=== PATIENT | female | born 1970 | race Caucasian/White ===

== ENCOUNTER 2019-12-28 18:43 | Emergency (ER) | payer OTHER, SELFPAY ==
[2017-10-02 15:40] VITALS: BMI 25.4
[2019-12-28 18:57] VITALS: BP 141/92; PULSE 88; RESP 18; TEMP 37.3; O2SAT 100
[2019-12-28 20:04] LABS: Bacteria Urine None Seen; RBC Urine None Seen (0-5/HPF); WBC Urine None Seen (0-5/HPF)
[2019-12-28 20:19] LABS: Culture Indicated Urine Cult Not Indicated; Urine Comments Microscopic Normal
[2019-12-28] MEDS: SODIUM CHLORIDE 0.9% 1,000 ML 1000 ML IV (20:48)
[2019-12-28] MEDS: ONDANSETRON 4 MG/2 ML INJ IV ×2 (20:48→23:03)
[2019-12-28 20:58] LABS: Add Manual Diff / Slide Review NO; Basophils Absolute Auto 0 /uL (0-100); Basophils Percent Auto 0.5 % (0-2); Eosinophils Absolute Auto 100 /uL (0-450); Eosinophils Percent Auto 1.8 % (2-4); Hemoglobin 12.7 g/dL (12.0-16.0); Lymphocytes Absolute Auto 2500 /uL (1100-4500); Lymphocytes Percent Auto 35.8 % (25-40); Mean Corpuscular HGB Conc 34.2 % (30-36); Mean Corpuscular Hemoglobin 33.1 PG (26-34); Mean Corpuscular Volume 96.6 fL (80-100); Monocytes Absolute Auto 600 /uL (0-900); Monocytes Percent Auto 8.7 % (3-14); Neutrophils Absolute Auto 3700 /uL (1500-7000); Neutrophils Percent Auto 53.2 % (50-75); Platelet Count 211 X10^3/uL (150-400); Red Blood Cell Count 3.83 X10^6/uL (4.0-5.2); Red Cell Distribution Width 13.4 % (11.6-14.8)
[2019-12-28 21:00] VITALS: BP 111/66; PULSE 75; RESP 16; O2SAT 99
[2019-12-28 21:03] VITALS: PULSE 77; RESP 15; O2SAT 100
[2019-12-28 21:08] LABS: PTT Partial Thromboplastin Tim 33 SECONDS (26.4-36.2)
[2019-12-28 21:09] LABS: Alanine Aminotransferase 18 IU/L (<35); Albumin 4.5 g/dL (3.5-5.0); Albumin Globulin Ratio 1.9 (1.0-2.8); Alkaline Phosphatase 62 U/L (38-126); Aspartate Aminotransferase 27 IU/L (14-36); BUN Creatinine Ratio 15.2 (6-22); Bilirubin Total 0.5 mg/dL (0.2-1.3); Blood Urea Nitrogen 10 mg/dL (7-17); Calcium 9.4 mg/dL (8.4-10.2); Carbon Dioxide 18 mmol/L (22-32); Chloride 99 mmol/L (98-107); Estimated Glomerular Filt Rate > 60.0 mL/min (>60); Globulin 2.4 g/dL (1.7-4.1); Glucose 61 mg/dL (70-100); HEMOLYSIS < 15 (0-50); Lipase 54 U/L (23-300); Potassium 3.1 mmol/L (3.4-5.1); Sodium 136 mmol/L (137-145); Total Protein 6.9 g/dL (6.3-8.2)
[2019-12-28 21:30] VITALS: BP 126/75; PULSE 83; RESP 16; O2SAT 99
[2019-12-28] MEDS: POTASSIUM CHLORIDE 20 MEQ/15 ML UDC 40 MEQ PO (21:33)
[2019-12-28 22:00] VITALS: BP 98/54; PULSE 73; PULSE 77; RESP 19; O2SAT 97
[2019-12-28 22:30] VITALS: BP 101/58; PULSE 74; RESP 16; O2SAT 96
--- NOTE | 2019-12-28 22:40 | ED_ITS ---
HPI - Nausea/Vomiting/Diarrhea General Chief complaint: Nausea/Vomiting/Diarrhea Stated complaint: thinks potassium levels is low, nausea Time Seen by Provider: 12/28/19 19:24 Source: patient Mode of arrival: Ambulatory Limitations: no limitations History of Present Illness HPI Narrative: 49-year-old female daily smoker with history of high blood pressure, GERD and a prior Joshua-en-Y gastric bypass in 2008 at [facility] presents with a chief complaint of ongoing nausea and vomiting. Her symptoms started a few days ago and are largely in the absence of pain. She denies any new medications or dietary change. She was seen and evaluated at an outside facility and had a thorough evaluation including a CT scan of her abdomen and pelvis with IV contrast which notes findings suggestive of a gastrogastric f istula. She was given contact information for follow-up with the bariatric service [facility] in [place] but has yet to hear back from them. Furthermore, she has had increasing nausea and episodes of vomiting and has had difficulty keeping medications down. She had a slightly decreased potassium a few days ago and has been able to at least keep the supplements down but largely unable to keep food and water down. She has had no runny nose, sore throat or cough. She denies any fever or chills. She denies chest pain or shortness of breath. She has some vague abdominal discomfort but nothing significant. She denies any change in bowel or bladder habits. MD complaint: nausea, vomiting and abdominal pain Onset (ago): day(s) Description of Vomiting: bilious Description of Diarrhea: none Associated Abdominal Pain: Yes Location of pain: diffuse Radiation: diffuse Severity: mild Quality: cramping Pain Consistency: intermittent Relieving factors: none Exacerbating factors: eating Related Data Home Medications Medication Instructions Recorded Confirmed bupropion HCl [Wellbutrin XL] 150 mg PO BID #0 06/14/17 12/28/19 hydrochlorothiazide 25 mg PO QDAY #0 06/14/17 12/28/19 esomeprazole magnesium 20 mg PO DAILY 12/28/19 12/28/19 ondansetron 4 mg PO Q6HR PRN 12/28/19 12/28/19 valsartan 40 mg PO DAILY 12/28/19 12/28/19 Previous Rx's Medication Instructions Recorded metoclopramide HCl [Reglan] 10 mg PO Q6H PRN #10 tab 12/29/19 ondansetron 4 mg PO TID-QID PRN #10 tab 12/29/19 Allergies Allergy/AdvReac Type Severity Reaction Status Date / Time ciprofloxacin [CIPROFLOXACIN] Allergy Severe Anaphylaxis Verified 12/28/19 19:03 phenazopyridine Allergy Severe Anaphylaxis Verified 12/28/19 19:03 [PHENAZOPYRIDINE] Review of Systems Constitutional Constitutional: Denies chills, Denies fatigue, Denies fever(s), Denies frequent falls, Denies lethargy and Denies weakness Eyes Eyes: Denies change in vision, Denies eye discharge, Denies irritation and Denies loss of vision ENT Ears, Nose, Mouth, and Throat: Denies change in voice, Denies dizziness, Denies neck pain, Denies sore throat and Denies throat swelling Cardiovascular Cardiovascular: Denies chest pain, Denies irregular heart rhythm, Denies lightheadedness, Denies palpitations, Denies dyspnea, Denies dyspnea on exertion and Denies orthopnea Respiratory Respiratory: Denies cough, Denies dyspnea, Denies dyspnea on exertion and Denies wheezing Gastrointestinal Gastrointestinal: Reports abdominal pain, Denies change in bowel habits, Denies diarrhea, Reports nausea and Reports vomiting Musculoskeletal Musculoskeletal: Denies neck pain and Denies numbness Integumentary/Breasts Skin/Breast: Denies pruritus, Denies erythema, Denies rash and Denies wounds Neurologic Neurologic: Denies behavioral changes, Denies confusion, Denies dizziness, Denies frequent falls, Denies loss of vision, Denies numbness and Denies weakness Psychiatric Psychiatric: Denies anxiety, Denies behavioral changes, Denies confusion, Denies depression, Denies homicidal ideation and Denies suicidal ideation Endocrine Endocrine: Denies fatigue, Denies flushing and Denies palpitations Hematologic/Lymphatic Hematologic/Lymphatic: Denies easy bruising Allergic/Immunologic Allergic/Immunologic: Denies urticaria, Denies throat swelling and Denies wheezing Patient History Medical History (Updated 12/29/19 @ 00:28 by Joey Blanchard DO) Abnormal Pap smear of cervix (Acute) Bartholin cyst (Acute) Gastric volvulus (Acute) Hypertension (Acute) IUD (intrauterine device) in place (Acute) Menorrhagia due to intrauterine device (IUD) (Acute) Surgical History (Updated 10/11/17 @ 08:24 by Jayleen Titus MA) Gastric bypass status for obesity (Acute) S/P laparoscopic hysterectomy (Resolved 10/02/17) Social History household members: other Smoking Status: Current every day smoker alcohol intake: current Smoking Status: Current every day smoker alcohol intake frequency: holidays/special occasions only Substance Use Type: does not use Exam Narrative Exam Narrative: GENERAL: [49] year old patient appears stated age. Well- nourished, well-developed patient, in mild distress. HEAD: Atraumatic. Normocephalic. EYES: Pupils equal round and reactive. Extraocular motions intact. No scleral icterus. No injection or drainage. ENT: Nose without bleeding, purulent drainage. Throat without erythema, tonsillar hypertrophy or exudate. Airway patent. NECK: Trachea midline. Non tender CARDIOVASCULAR: Regular rate and rhythm without murmurs, gallops, or rubs. RESPIRATORY: Clear to auscultation. Breath sounds equal bilaterally. No wheezes, rales, or rhonchi. GASTROINTESTINAL: Abdomen soft, mild generalized tenderness, nondistended. EXTREMITIES: No edema or joint tenderness. BACK: Nontender without deformity or crepitance. No flank tenderness. NEURO: AOx3. SKIN: No rash or erythema of visible areas Initial Vital Signs Initial Vital Signs: Vital Signs Temperature 99.2 F 12/28/19 18:57 Pulse Rate 88 12/28/19 18:57 Respiratory Rate 18 12/28/19 18:57 Blood Pressure 141/92 H 12/28/19 18:57 Pulse Oximetry 100 12/28/19 18:57 Course Orders Ordered: ED Orders 12/28/19 19:30 Urine Microscopic Stat 12/28/19 20:28 EKG-12 Lead Stat 12/28/19 20:50 Complete Blood Count AUTO DIFF Stat Comprehensive Metabolic Panel Stat Lipase Stat Partial Thromboplastin Time Stat Prothrombin Time INR Stat Discontinued Medications Sodium Chloride (Normal Saline 0.9%) 1,000 mls @ 1,000 mls/hr IV BOLUS ONE Stop: 12/28/19 21:22 Last Infusion: 12/28/19 22:49 Dose: 0 mls/hr Documented by: Admin: 12/28/19 20:48 Dose: 1,000 mls/hr Documented by: OMAR Ondansetron HCl (Zofran) 4 mg IV NOW ONE Stop: 12/28/19 20:24 Last Admin: 12/28/19 20:48 Dose: 4 mg Documented by: OMAR Ondansetron HCl (Zofran) 4 mg IV NOW ONE Stop: 12/28/19 23:00 Last Admin: 12/28/19 23:03 Dose: 4 mg Documented by: OMAR Potassium Chloride (Potassium Chloride) 40 meq PO NOW ONE Stop: 12/28/19 21:24 Last Admin: 12/28/19 21:33 Dose: 40 meq Documented by: OMAR Reevaluation(s) Reevaluation #1: patient feeling much better after fluids and zofran Consultations Consultation #1: given ongoing symptoms and recent CT findings call placed to [facility] as this is where she was recently referred. Nobody public relations supervisor for group. Consultation #2: after further discussion she now remembers that her surgery was actually at [facility] so call placed to [facility]. Bariatrics have reviewed case and suggest no need for anything immediate, only that clear liquids, antiemetics and follow up are indicated. No need for more imaging. Vital Signs Vital signs: Vital Signs - 8 hr 12/28/19 18:57 12/28/19 21:00 12/28/19 21:03 Temperature 99.2 F Pulse Rate 88 75 77 Respiratory Rate 18 16 15 Blood Pressure 141/92 H 111/66 Pulse Oximetry 100 99 100 12/28/19 21:30 12/28/19 22:00 12/28/19 22:30 Temperature Pulse Rate 83 77 74 Respiratory Rate 16 19 16 Blood Pressure 126/75 98/54 L 101/58 L Pulse Oximetry 99 97 96 MDM - Nausea/Vomiting/Diarrhea Lab Data Result diagrams: 12/28/19 20:50 12/28/19 20:50 Labs: Lab Results 12/28/19 12/28/19 12/28/19 Range/Units 19:30 20:50 20:50 WBC 7.0 (4.5-11.0) X10^3/uL RBC 3.83 L (4.0-5.2) X10^6/uL Hgb 12.7 (12.0-16.0) g/dL Hct 37.0 (36-46) % MCV 96.6 (80-100) fL MCH 33.1 (26-34) PG MCHC 34.2 (30-36) % RDW 13.4 (11.6-14.8) % Plt Count 211 (150-400) X10^3/uL Neut % (Auto) 53.2 (50-75) % Lymph % (Auto) 35.8 (25-40) % Cherry % (Auto) 8.7 (3-14) % Eos % (Auto) 1.8 L (2-4) % Baso % (Auto) 0.5 (0-2) % Neut # (Auto) 3700 (3676-8752) /uL Lymph # (Auto) 2500 (4234-7401) /uL Cherry # (Auto) 600 (0-900) /uL Eos # (Auto) 100 (0-450) /uL Baso # (Auto) 0 (0-100) /uL PT 12.0 (10.1-12.7) SECONDS INR 1.0 (0.9-1.3) APTT 33 (26.4-36.2) SECONDS Sodium (137-145) mmol/L Potassium (3.4-5.1) mmol/L Chloride (98-107) mmol/L Carbon Dioxide (22-32) mmol/L BUN (7-17) mg/dL Creatinine (0.52-1.04) mg/dL Estimated GFR (>60) mL/min BUN/Creatinine Ratio (6-22) Glucose (70-100) mg/dL Calcium (8.4-10.2) mg/dL Total Bilirubin (0.2-1.3) mg/dL AST (14-36) IU/L ALT (<35) IU/L Alkaline Phosphatase (38-126) U/L Total Protein (6.3-8.2) g/dL Albumin (3.5-5.0) g/dL Globulin (1.7-4.1) g/dL Albumin/Globulin Ratio (1.0-2.8) Lipase (23-300) U/L Urine RBC None seen (0-5/HPF) Urine WBC None seen (0-5/HPF) Urine Bacteria None seen (None) Ur Culture Indicated? Cult not indicated Micro UA Comment Microscopic normal 12/28/19 Range/Units 20:50 WBC (4.5-11.0) X10^3/uL RBC (4.0-5.2) X10^6/uL Hgb (12.0-16.0) g/dL Hct (36-46) % MCV (80-100) fL MCH (26-34) PG MCHC (30-36) % RDW (11.6-14.8) % Plt Count (150-400) X10^3/uL Neut % (Auto) (50-75) % Lymph % (Auto) (25-40) % Cherry % (Auto) (3-14) % Eos % (Auto) (2-4) % Baso % (Auto) (0-2) % Neut # (Auto) (9281-5584) /uL Lymph # (Auto) (5997-7392) /uL Cherry # (Auto) (0-900) /uL Eos # (Auto) (0-450) /uL Baso # (Auto) (0-100) /uL PT (10.1-12.7) SECONDS INR (0.9-1.3) APTT (26.4-36.2) SECONDS Sodium 136 L (137-145) mmol/L Potassium 3.1 L (3.4-5.1) mmol/L Chloride 99 (98-107) mmol/L Carbon Dioxide 18 L (22-32) mmol/L BUN 10 (7-17) mg/dL Creatinine 0.66 (0.52-1.04) mg/dL Estimated GFR > 60.0 (>60) mL/min BUN/Creatinine Ratio 15.2 (6-22) Glucose 61 L (70-100) mg/dL Calcium 9.4 (8.4-10.2) mg/dL Total Bilirubin 0.5 (0.2-1.3) mg/dL AST 27 (14-36) IU/L ALT 18 (<35) IU/L Alkaline Phosphatase 62 (38-126) U/L Total Protein 6.9 (6.3-8.2) g/dL Albumin 4.5 (3.5-5.0) g/dL Globulin 2.4 (1.7-4.1) g/dL Albumin/Globulin Ratio 1.9 (1.0-2.8) Lipase 54 (23-300) U/L Urine RBC (0-5/HPF) Urine WBC (0-5/HPF) Urine Bacteria (None) Ur Culture Indicated? Micro UA Comment Point of Care Testing Test Results Negative Urine Dip Bedside Urine Glucose Negative Bedside Urine Bilirubin - Negative Bedside Urine Ketone +++ 80 Urine Specific [place] 1.020 Bedside Urine Occult Blood + Bedside Urine pH 6.0 Bedside Urine Protein - Negative Bedside Urine Urobilinogen - Negative Bedside Urine Nitrite - Negative Bedside Urine Leukocytes - Negative Esterase MDM Narrative Medical decision making narrative: patient feeling much better, with stable vitals and no ongoing vomiting. She refuses to perform oral challenge. She's kept down water and small amounts of food at home. She understands return precautions and has had questions to her apparent satisfaction Discharge Plan Departure Patient Disposition: Home Clinical Impression: Acute hypokalemia Vomiting Qualifiers: Vomiting type: unspecified Vomiting Intractability: non-intractable Nausea presence: with nausea Qualified Code(s): R11.2 - Nausea with vomiting, unspecified Discharge Date/Time: 12/29/19 00:39 Instructions: DI for Dehydration -- Adult, DI for Hypokalemia, DI for Nausea -- Adult, DI for Vomiting -- Adult Activity Restrictions/Additional Instructions: *You have been diagnosed with [hypokalemia, vomiting] *What to do: *Take medications as directed *Follow up with your primary care provider in 2-3 days, call for an appointment. Let them know you were seen in the Emergency Department and that we ask that you be seen in follow up *Return to ER if you should have any new, worsening or concerning symptoms 1. Drink plenty of fluids with frequent small sips. 2. For the next 24 hours a clear liquid diet is advised. After that please employ a brat diet which would include bananas, rice, apples, toast. 3. Please take medications as directed. 4. Please follow-up with your doctor in the next 1-2 days. Call the office for an appointment. 5. Please return to the emergency Department for any worsening or persistent symptoms, such as increasing pain or fever. Prescriptions: New ondansetron 4 mg tablet,disintegrating 4 mg PO TID-QID PRN (Reason: nausea and vomiting) Qty: 10 RF: 0 metoclopramide HCl [Reglan] 10 mg tablet 10 mg PO Q6H PRN (Reason: nausea and vomiting) Qty: 10 RF: 0 No Action hydrochlorothiazide 25 MG tablet 25 mg PO QDAY Qty: 0 RF: 0 bupropion HCl [Wellbutrin XL] 300 MG tablet extended release 24 hr 150 mg PO BID Qty: 0 RF: 0 ondansetron 4 mg tablet,disintegrating 4 mg PO Q6HR PRN (Reason: nausea/vomiting) RF: 0 esomeprazole magnesium 20 mg capsule,delayed release(DR/EC) 20 mg PO DAILY RF: 0 valsartan 40 mg tablet 40 mg PO DAILY RF: 0 Referrals: Emory Byrd DO [Primary Care Provider] -
== END 2019-12-29 00:39 | disposition home or self-care (01) ==
PROVIDERS: Emergency Provider Emergency Medicine; PCP Family Medicine
DX: I10 Essential (primary) hypertension (principal); K21.9 Gastro-esophageal reflux disease without esophagitis; E87.6 Hypokalemia; Z98.84 Bariatric surgery status
CPT/HCPCS: 36415; 80053; 81003; 81015; 81025; 83690; 85025; 85610; 85730; 93005; 96361; 96374; 96376; 99284; J2405

== ENCOUNTER → 2024-10-10 09:55 | Outpatient (CLI) | payer OTHER, SELFPAY ==
[2017-10-02 15:40] VITALS: BMI 25.4
--- NOTE | 2024-10-10 09:58 | DI.MG.S_ITS ---
MM diagnostic mammo unilat RT, US breast RT limited: 10/10/2024 BI-RADS: 2 CLINICAL: 54-year old female for right diagnostic mammogram and right diagnostic breast ultrasound. Tyrer-Cuzick lifetime risk of 12.3%. PRIOR EXAMS 04/08/2024, 08/20/2021, 08/20/2018, 01/14/2016. MAMMOGRAPHY TECHNIQUE: 2D and 3D (tomosynthesis) digital mammographic views obtained, with additional images as needed for full coverage. Current study was also evaluated with a Computer Aided Detection (CAD) system. ULTRASOUND TECHNIQUE Real-time chung scale imaging of the area of clinical interest was performed with image documentation. TARGETED Right Breast Ultrasound: Real-time ultrasound exam was performed focused to area of clinical and/or imaging concern. DENSITY Right: B. There are scattered areas of fibroglandular density. MAMMOGRAPHY FINDINGS Right: Reduction mammoplasty changes present. There are no suspicious masses, calcifications, or other findings in the breast. A skin marker was placed in the areas of clinical concern, and no mammographic abnormality is identified. ULTRASOUND FINDINGS Right: Lower Inner at 4:00, 5 cm from nipple: There is no sonographic abnormality in the area of clinical palpable concern. No suspicious sonographic finding present. Right: Outer at 9:00, 3 cm from nipple: There is no sonographic abnormality in the area of clinical palpable concern. No suspicious sonographic finding present. Right: Central, Retroareolar: There is no sonographic abnormality in the area of clinical palpable concern. No suspicious sonographic finding present. IMPRESSION: Right * No evidence of malignancy with benign findings. RECOMMENDATIONS Right * Clinical follow-up is recommended, and further management of palpable abnormalities or other focal signs or symptoms should be based on the results of clinical evaluation. If palpable abnormality or other concerning symptom persists or progresses, further clinical evaluation should be considered. Bilateral * Annual screening mammography. COMMENTS: Findings and recommendations were conveyed to the patient during today's evaluation. OVERALL ASSESSMENT CATEGORY BI-RADS-2: Benign. The [employer] recommends annual screening mammography beginning at age 40 for women with average risk of breast cancer. ELECTRONICALLY SIGNED: Codie Rodriguez M.D. on 10/10/2024 at 02:11:16 PM PT Interpreting Station ID: [id number]
== END ==
LOC: MAMMO 09:57
PROVIDERS: PCP Family Medicine
DX: R92.1 Mammographic calcification found on diagnostic imaging of breast (principal)
CPT/HCPCS: 76642; 77065; G0279